=== PATIENT | female | born 1935 | race Caucasian/White ===

== ENCOUNTER → 2018-02-10 | Outpatient (CLI) | payer OTHER ==
[~2018-02-10] MED LIST: ALDACTONE25 MG PO; ASPIR 8181 MG PO; ATENOLOL 25 MG25 M1 PO; CLONAZEPAM 0.50.5 M1 PO; COUMADIN 5 MG TA5 M1 PO; FLORASTOR250 MG PO; HYOSCYAMINE0.375 M1 PO; NORVASC2.5 MG PO; VITAMIN D1000 UNI1 PO
== END ==
LOC: MRI 11:32
DX: M48.061 Spinal stenosis, lumbar region without neurogenic claudication (principal); M48.04 Spinal stenosis, thoracic region